=== PATIENT | female | born 1940 | race Caucasian/White ===

== ENCOUNTER 2019-08-14 07:21 | Day surgery (SDC) | payer MEDICARE ==
[~2019-08-14 07:21] MED LIST: ASPI81CH PO; ESTR2; IBUP100S; Lisinopril2.5 MG; METO25ER; RANI150EL; Vitamin D400 UNI1
== END 2019-08-14 23:24 | disposition home or self-care (01) ==
LOC: MOI MAM 07:21
DX: N64.89 Other specified disorders of breast (principal)
CPT/HCPCS: 19083; 77065; 88305; A4648; G0279

== ENCOUNTER → 2022-10-19 | Outpatient (CLI) | payer MEDICARE ==
[2022-10-19 11:38] LABS: BASOPHILS ABSOLUTE AUTO 0.08 K/mm3 (0.00-0.23); BASOPHILS PERCENT AUTO 1 % (0-2); EOSINOPHILS PERCENT AUTO 6 % (0-6); Hematocrit 35.1 % (33.0-51.0); IMMATURE GRAN ABSOLUTE AUTO 0.03 K/mm3 (0.00-0.10); IMMATURE GRAN PERCENT AUTO 0 % (0-1); LYMPHOCYTES ABSOLUTE AUTO 1.02 K/mm3 (0.84-5.20); LYMPHOCYTES PERCENT AUTO 10 % (21-46); MONOCYTES ABSOLUTE AUTO 1.22 K/mm3 (0.16-1.47); MONOCYTES PERCENT AUTO 12 % (4-13); Mean Corpuscular HGB 32.1 pg (26.0-34.0); Mean Corpuscular HGB Conc 34.2 g/dL (31.5-36.5); Mean Corpuscular Volume 94 fL (80-100); Mean Platelet Volume 9.8 fL (9.1-12.4); NEUTROPHILS ABSOLUTE AUTO 7.55 K/mm3 (1.96-9.15); NEUTROPHILS PERCENT AUTO 72 % (41-73); Platelet Count 272 K/mm3 (150-400); RDW Standard Deviation 41.6 fL (35.1-46.3); Red Blood Cell Count 3.74 M/mm3 (3.80-5.20)
[2022-10-19 11:50] LABS: Albumin, Blood 3.6 g/dL (3.4-5.0); Albumin/Globulin Ratio 0.8 (0.8-1.8); Bilirubin, Total 0.6 mg/dL (0.1-1.0); Bun/Creatinine Ratio 14.9 (12.0-20.0); Calcium, Blood 9.6 mg/dL (8.5-10.1); Creatinine, Blood 1.48 mg/dL (0.40-1.00); Globulin, Blood 4.4 g/dL (2.2-4.0); Potassium, Blood 4.1 mmol/L (3.5-5.5)
== END ==
LOC: LAB 11:34 → LAB SHORT 11:34
PROVIDERS: Physician Assistant
DX: R10.9 Unspecified abdominal pain (principal)
CPT/HCPCS: 80053; 83690; 85025

== ENCOUNTER 2023-04-08 08:47 | Day surgery (SDC) | payer MEDICARE ==
[~2023-04-08] VITALS: Ht 167.6 cm; Wt 86.6 kg
[2023-04-08] MEDS ORDERED: DOC250 (09:11)
[2023-04-08] MEDS ORDERED: CLARITIN5 MG/5 M2 (09:11)
[2023-04-08] MEDS ORDERED: FAMO10 (09:11)
[2023-04-08] MEDS ORDERED: OMEP20ER (09:11)
[2023-04-08] MEDS ORDERED: Lisinopril-Hct1 EAC4 (09:11)
[2023-04-08 11:30] VITALS: BP 114/59
== END 2023-04-08 11:52 | disposition home or self-care (01) ==
LOC: ORSCSDS 08:47
PROVIDERS: Internal Medicine Gastroenterology
PROC: 0DB78ZX Excision of Stomach, Pylorus, Via Natural or Artificial Opening Endoscopic, Diagnostic (ICD-10-PCS; principal; 2023-04-08 10:15)
PROC: 0DB98ZX Excision of Duodenum, Via Natural or Artificial Opening Endoscopic, Diagnostic (ICD-10-PCS; principal; 2023-04-08 10:15)
PROC: 0DBN8ZX Excision of Sigmoid Colon, Via Natural or Artificial Opening Endoscopic, Diagnostic (ICD-10-PCS; principal; 2023-04-08 10:15)
PROC: 0DBK8ZX Excision of Ascending Colon, Via Natural or Artificial Opening Endoscopic, Diagnostic (ICD-10-PCS; principal; 2023-04-08 10:15)
PROC: 0DBP8ZX Excision of Rectum, Via Natural or Artificial Opening Endoscopic, Diagnostic (ICD-10-PCS; principal; 2023-04-08 10:15)
PROC: 0DBL8ZX Excision of Transverse Colon, Via Natural or Artificial Opening Endoscopic, Diagnostic (ICD-10-PCS; principal; 2023-04-08 10:15)
PROC: 0DBH8ZX Excision of Cecum, Via Natural or Artificial Opening Endoscopic, Diagnostic (ICD-10-PCS; principal; 2023-04-08 10:15)
DX: K21.00 Gastro-esophageal reflux disease with esophagitis, without bleeding (principal); R10.31 Right lower quadrant pain; R93.3 Abnormal findings on diagnostic imaging of other parts of digestive tract; K44.9 Diaphragmatic hernia without obstruction or gangrene; K63.89 Other specified diseases of intestine; K57.30 Diverticulosis of large intestine without perforation or abscess without bleeding; K64.0 First degree hemorrhoids; K29.70 Gastritis, unspecified, without bleeding; K31.7 Polyp of stomach and duodenum; D12.0 Benign neoplasm of cecum; D12.2 Benign neoplasm of ascending colon; D12.3 Benign neoplasm of transverse colon; D12.5 Benign neoplasm of sigmoid colon; K63.5 Polyp of colon; K62.1 Rectal polyp; I12.9 Hypertensive chronic kidney disease with stage 1 through stage 4 chronic kidney disease, or unspecified chronic kidney disease; N18.32 Chronic kidney disease, stage 3b; F41.8 Other specified anxiety disorders; Z87.891 Personal history of nicotine dependence; Z79.899 Other long term (current) drug therapy
CPT/HCPCS: 88305; 88342; J2405; J2704; J7120

== ENCOUNTER 2023-05-05 08:04 | Inpatient (IN) | payer MEDICARE ==
[2023-05-05] VITALS (14 sets, daily range): BP systolic 119–162; BP diastolic 52–124
[~2023-05-05] VITALS: Ht 167.6 cm; Wt 86.7 kg
[~2023-05-05 08:04] MED LIST changes: +CLARITIN5 MG/5 M2; +DOC250 PO; +ERGO400 PO; -ESTR2; +ESTR2 PO; +FAMO10; +Lisinopril-Hct1 EAC4 PO; -METO25ER; +METO25ER PO; +MULVITA PO; +OMEP20ER PO; -Vitamin D400 UNI1
--- NOTE | 2023-05-05 09:25 | NUR ---
Ambulatory in Day Surgery History, Chart, Medications and Allergies reviewed before start of procedure.Lungs clear T/O to Auscultation. Patient confirms NPO status and agrees with scheduled surgery. Patient reports completing Chlorhexadine shower X2 prior to admission to hospital.Surgical site prepped with 2% Chlorhexidine cloth wipe.Pt reports 3/10 right abdominal pain and nausea.
--- NOTE | 2023-05-05 15:05 | NUR ---
PATIENT JUST ARRIVED FROM PACU TODAY AT 1500. POD 0 LAP RAMESH COLECTOMY PATIENT IS DROWSY BUT ANSWERS QUESTIONS APPROPRIATELY WHEN SPOKEN TO. HER ABD HAS 4 LAP SITES WITH STERI STRIPS. HER UMBILICAL LAP SITE IS LEAKING A LITTLE BIT OF RED OUTPUT BUT OTHERWISE THE REST OF THE STERI STRIPS ARE C/D/I. PATIENT IS TOLERATING A SMALL AMOUNT OF PO INTAKE. PATIENT WAS EDUCATED ON IGNITION SOURCES AND RISKS OF INJURY WITH IGNITION SOURCES. PATIENT VERBALIZED UNDERSTANDING OF EDUCATION AND HAD NO FURTHER QUESTIONS AT THIS TIME. SHE HAS A RIVAS WITH DARK YELLOW URINE OUTPUT. SHE DENIES NUMBNESS OR TINGLING. PATIENT IS LAYING IN BED WITH CALL LIGHT IN REACH.
[2023-05-06 00:57] VITALS: BP 148/61
[2023-05-06 04:47] VITALS: BP 144/71
[2023-05-06 05:23] LABS: BASOPHILS ABSOLUTE AUTO 0.01 K/mm3 (0.00-0.23); BASOPHILS PERCENT AUTO 0 % (0-2); EOSINOPHILS PERCENT AUTO 0 % (0-6); Hematocrit 35.4 % (33.0-51.0); Hemoglobin 12.1 g/dL (11.5-16.0); IMMATURE GRAN PERCENT AUTO 1 % (0-1); LYMPHOCYTES ABSOLUTE AUTO 0.76 K/mm3 (0.84-5.20); LYMPHOCYTES PERCENT AUTO 5 % (21-46); MONOCYTES ABSOLUTE AUTO 0.96 K/mm3 (0.16-1.47); MONOCYTES PERCENT AUTO 6 % (4-13); Mean Corpuscular HGB 31.3 pg (26.0-34.0); Mean Corpuscular HGB Conc 34.2 g/dL (31.5-36.5); Mean Corpuscular Volume 92 fL (80-100); Mean Platelet Volume 10.1 fL (9.1-12.4); NEUTROPHILS ABSOLUTE AUTO 14.18 K/mm3 (1.96-9.15); NEUTROPHILS PERCENT AUTO 89 % (41-73); Platelet Count 272 K/mm3 (150-400); RDW Coefficient Variation 11.9 % (11.7-14.2); RDW Standard Deviation 39.8 fL (35.1-46.3); Red Blood Cell Count 3.86 M/mm3 (3.80-5.20); White Blood Cell Count 16.01 K/mm3 (4.00-11.30)
[2023-05-06 06:10] LABS: Bun/Creatinine Ratio 15.6 (12.0-20.0); Calcium, Blood 8.9 mg/dL (8.5-10.1); Creatinine, Blood 1.86 mg/dL (0.40-1.00); Potassium, Blood 4.6 mmol/L (3.5-5.5)
[2023-05-06 07:54] VITALS: BP 136/58
--- NOTE | 2023-05-06 08:00 | NUR ---
SHIFT SUMMARY POD 1 RIGHT HEMICOLECTOMY, 4 LAP SITES W/ STERI STRIPS INTACT. UMBILICAL SITE VISIBLE W/ MINIMAL DRIED BLOOD AND INDER BRUISING. A&OX4, VSS, PT DENIES N/T, SOB, OR DIZZINESS. PT DOES REPORT 8/10 PAIN AT HS, MEDICATED W/ 0.5MG DILAUDID AND FOLLOWED BY 10MG KARRIE. PT SLEPT WELL T/O NIGHT W/ NO ACUTE CHANGES. EVELYN REMOVED THIS A.M. PT HAS NOT AMBULATED SINCE SURGERY BUT HAS DANGLED AT BEDSIDE. PT TOLERATING FOODS WELL. WILL REPORT OFF TO DAY SHIFT STAFF.
[2023-05-06 14:44] VITALS: BP 140/55
--- NOTE | 2023-05-06 18:39 | NUR ---
SHIFT SUMMARY PT AxOx4. PLEASANT AND COOPERATIVE WITH CARE. PT IS POST OP DAY 1 FROM RIGHT HEMICOLECTOMY. PT REPORTED GENERALIZED ABD PAIN THIS SHIFT. PT MEDICATED PER EMAR WITH REPORTED RELIEF. LAP SITES x4 APPEAR WNL WITH STERI STRIP CLOSURE. NO REDNESS, NEW BLEEDING OR SWELLING NOTED AT INCISION SITES. SURGEON IN FOR POST OP CHECK. PT VOIDING WITHOUT DIFFICULTY POST RIVAS REMOVAL. NO BM THIS SHIFT. PT TOLERATING CLEAR DIET WELL. PT UP IN ROOM AMBULATING SMOOTHLY WITH FWW AND SBA. FAMILY IN FOR VISITATION THIS SHIFT. PT IS CURRENTLY RESTING IN BED WITH CALL LIGHT IN REACH. PT DENIES ANY NEEDS AT THIS TIME.
[2023-05-06 19:36] VITALS: BP 135/63
[2023-05-07 04:31] VITALS: BP 140/66
[2023-05-07 04:48] LABS: BASOPHILS ABSOLUTE AUTO 0.06 K/mm3 (0.00-0.23); BASOPHILS PERCENT AUTO 1 % (0-2); EOSINOPHILS PERCENT AUTO 1 % (0-6); Hematocrit 32.2 % (33.0-51.0); IMMATURE GRAN ABSOLUTE AUTO 0.05 K/mm3 (0.00-0.10); IMMATURE GRAN PERCENT AUTO 0 % (0-1); LYMPHOCYTES ABSOLUTE AUTO 1.63 K/mm3 (0.84-5.20); LYMPHOCYTES PERCENT AUTO 13 % (21-46); MONOCYTES ABSOLUTE AUTO 1.42 K/mm3 (0.16-1.47); MONOCYTES PERCENT AUTO 11 % (4-13); Mean Corpuscular HGB 31.8 pg (26.0-34.0); Mean Corpuscular HGB Conc 34.2 g/dL (31.5-36.5); Mean Corpuscular Volume 93 fL (80-100); Mean Platelet Volume 10.1 fL (9.1-12.4); NEUTROPHILS ABSOLUTE AUTO 9.67 K/mm3 (1.96-9.15); NEUTROPHILS PERCENT AUTO 75 % (41-73); Platelet Count 253 K/mm3 (150-400); RDW Standard Deviation 40.7 fL (35.1-46.3); Red Blood Cell Count 3.46 M/mm3 (3.80-5.20); White Blood Cell Count 12.93 K/mm3 (4.00-11.30)
--- NOTE | 2023-05-07 05:28 | NUR ---
PT A/O WITH FLAT AFFECT, MINIMAL PAIN TO ABD, DRESSING CDI, ENC TO AMBULATE IN RM, DAUGHTER AT BEDSIDE. NEW IV STARTED LEFT AC. PT WAS THEN MEDIUCATED FOR MILD PAIN TO ABD, NOT CHANGE IN CONT, CONT MONITORING.
[2023-05-07 06:25] LABS: Bun/Creatinine Ratio 19.4 (12.0-20.0); Calcium, Blood 9.1 mg/dL (8.5-10.1); Creatinine, Blood 1.7 mg/dL (0.40-1.00)
[2023-05-07 07:32] VITALS: BP 154/61
[2023-05-07 15:10] VITALS: BP 150/61
--- NOTE | 2023-05-07 18:12 | NUR ---
SHIFT SUMMARY PT A&OX4 AND IN PLEASENT MOOD T/O SHIFT. DAUGHTER IN TO SEE PT T/O SHIFT. TOLERATING FULL LIQUID DIET WELL. VSS. PAIN MEDICATED PER EMAR. PT DENIES FLATUS/BM SINCE SURGERY. CALL LIGHT W/IN REACH. SHOWERED THIS SHIFT. LAP SITES ON ABD CDI, SCANT DRY BLOOD PRESENT. BOWEL TONES HYPOACTIVE.
[2023-05-07 19:55] VITALS: BP 129/55
--- NOTE | 2023-05-08 04:25 | NUR ---
SHIFT SUMMARY PATIENT HAD NO ACUTE CHANGES. AXOX 4 AND INDEPENDENT IN ROOM WITH FWW. REPORTED ABDOMEN PAIN X ONE AND NORCO ONE TAB GIVEN PER EMAR. PATIENT ABLE TO SLEEP. DENIES CHEST PAIN, SOB, AND N/V. VSS/AFEBRILE. PIV REMAINS INTACT. LAP SITES ON ABDOMEN C/D/I. PATIENT SITTING ON BENCH SEAT READING AT START OF SHIFT ON HER ELECTRONIC DEVICE. COOPERATIVE WITH CARE. CALL LIGHT IN REACH. BED IN LOWEST POSITION. WILL CONTINUE TO MONITOR UNTIL DAY SHIFT NURSE ASSUMES CARE.
[2023-05-08 05:13] VITALS: BP 137/52
[2023-05-08 05:18] LABS: BASOPHILS ABSOLUTE AUTO 0.08 K/mm3 (0.00-0.23); BASOPHILS PERCENT AUTO 1 % (0-2); EOSINOPHILS ABSOLUTE AUTO 0.42 K/mm3 (0.00-0.68); EOSINOPHILS PERCENT AUTO 5 % (0-6); Hematocrit 33.7 % (33.0-51.0); Hemoglobin 11.4 g/dL (11.5-16.0); IMMATURE GRAN ABSOLUTE AUTO 0.02 K/mm3 (0.00-0.10); IMMATURE GRAN PERCENT AUTO 0 % (0-1); LYMPHOCYTES ABSOLUTE AUTO 1.61 K/mm3 (0.84-5.20); LYMPHOCYTES PERCENT AUTO 17 % (21-46); MONOCYTES ABSOLUTE AUTO 1.05 K/mm3 (0.16-1.47); MONOCYTES PERCENT AUTO 11 % (4-13); Mean Corpuscular HGB 31.1 pg (26.0-34.0); Mean Corpuscular HGB Conc 33.8 g/dL (31.5-36.5); Mean Corpuscular Volume 92 fL (80-100); Mean Platelet Volume 10.2 fL (9.1-12.4); NEUTROPHILS ABSOLUTE AUTO 6.08 K/mm3 (1.96-9.15); NEUTROPHILS PERCENT AUTO 66 % (41-73); Platelet Count 264 K/mm3 (150-400); RDW Coefficient Variation 11.8 % (11.7-14.2); RDW Standard Deviation 40.1 fL (35.1-46.3); Red Blood Cell Count 3.66 M/mm3 (3.80-5.20); White Blood Cell Count 9.26 K/mm3 (4.00-11.30)
[2023-05-08 05:30] LABS: Calcium, Blood 9.5 mg/dL (8.5-10.1); Creatinine, Blood 1.25 mg/dL (0.40-1.00); Potassium, Blood 4.1 mmol/L (3.5-5.5)
[2023-05-08 08:00] VITALS: BP 140/61
--- NOTE | 2023-05-08 16:07 | NUR ---
SHIFT SUMMARY POD3 R LAP HEMICOLECTOMY, STERISTRIPS X4 DRY/INTACT, DENIES FLATUS/BT+, PRICE FULL LIQUID DIET, VOIDING, PAIN MANAGED, AMB INDEPENDENTLY IN ROOM/HALLWAY. WILL REPORT TO ONCOMING ERWIN KRAMER.
[2023-05-08 17:19] VITALS: BP 126/58
[2023-05-08 19:24] VITALS: BP 139/73
[2023-05-09 04:24] VITALS: BP 145/76
--- NOTE | 2023-05-09 04:33 | NUR ---
SHIFT SUMMARY PATIENT HAD NO ACUTE CHANGES. AXO X4 AND INDEPENDENT W/FWW IN ROOM AND HALLWAY. REPORTED HAVING LOOSE STOOLS. STERI STRIPS X 4 CLEAN/DRY/INTACT. ACTIVE BOWEL TONES. ABDOMINAL PAIN X ONE AND TYLENOL 325 MG GIVEN PER PATIENT REQUEST. VSS/AFEBRILE. DENIES CHEST PAIN, SOB, AND N/V. WATCHED TV FIRST PART OF SHIFT. COOPERATIVE WITH CARE. CALL LIGHT IN REACH. BED IN LOWEST POSITION. WILL CONTINUE TO MONITOR UNTIL DAY SHIFT NURSE ASSUMES CARE.
[2023-05-09 07:40] VITALS: BP 105/81
[2023-05-09 08:26] LABS: BASOPHILS ABSOLUTE AUTO 0.07 K/mm3 (0.00-0.23); BASOPHILS PERCENT AUTO 1 % (0-2); EOSINOPHILS ABSOLUTE AUTO 0.39 K/mm3 (0.00-0.68); EOSINOPHILS PERCENT AUTO 4 % (0-6); Hematocrit 32.4 % (33.0-51.0); Hemoglobin 11.2 g/dL (11.5-16.0); IMMATURE GRAN ABSOLUTE AUTO 0.02 K/mm3 (0.00-0.10); IMMATURE GRAN PERCENT AUTO 0 % (0-1); LYMPHOCYTES ABSOLUTE AUTO 1.18 K/mm3 (0.84-5.20); LYMPHOCYTES PERCENT AUTO 13 % (21-46); MONOCYTES ABSOLUTE AUTO 1.03 K/mm3 (0.16-1.47); MONOCYTES PERCENT AUTO 11 % (4-13); Mean Corpuscular HGB 31.7 pg (26.0-34.0); Mean Corpuscular HGB Conc 34.6 g/dL (31.5-36.5); Mean Corpuscular Volume 92 fL (80-100); Mean Platelet Volume 9.9 fL (9.1-12.4); NEUTROPHILS ABSOLUTE AUTO 6.47 K/mm3 (1.96-9.15); NEUTROPHILS PERCENT AUTO 71 % (41-73); Platelet Count 262 K/mm3 (150-400); RDW Coefficient Variation 11.8 % (11.7-14.2); RDW Standard Deviation 39.6 fL (35.1-46.3); Red Blood Cell Count 3.53 M/mm3 (3.80-5.20); White Blood Cell Count 9.16 K/mm3 (4.00-11.30)
[2023-05-09 08:32] VITALS: BP 133/85
[2023-05-09 08:47] LABS: Albumin, Blood 3.1 g/dL (3.4-5.0); Albumin/Globulin Ratio 0.8 (0.8-1.8); Bilirubin, Total 0.5 mg/dL (0.1-1.0); Bun/Creatinine Ratio 16.7 (12.0-20.0); Calcium, Blood 9.4 mg/dL (8.5-10.1); Creatinine, Blood 1.2 mg/dL (0.40-1.00); Globulin, Blood 3.7 g/dL (2.2-4.0); Magnesium, Blood 1.8 mg/dL (1.6-2.4); Phosphorus, Blood 2.2 mg/dL (2.5-4.9); Potassium, Blood 4.1 mmol/L (3.5-5.5); Total Protein, Blood 6.8 g/dL (6.4-8.2)
--- NOTE | 2023-05-09 09:30 | NUR ---
TACHYCARDIA DURING AM VS CHECKS PT WAS FOUND TO HAVE HR OF 160-170. PT DENIED SHORTNESS OF BREATH AND CHEST PAIN. PT DID REPORT FEELING THAT HER HR WAS ABNORMAL. DR. ANDERS NOTIFIED, EKG OBTAINED AND DR. RODRIGUEZ CONSULTED. TELE ORDERED, FLUID BOLUS ORDERED AND GIVEN, METOPROLOL GIVEN. PT'S HR REDUCED TO 80'S BY THE TIME TELE WAS PLACED. DR. RODRIGUEZ NOTIFIED. REPEAT EKG CONFIMED NSR. BP IMPROVED AND REMAINING AM MEDS GIVEN.
[2023-05-09] MEDS ORDERED: ACET325 PO (14:13)
[2023-05-09] MEDS ORDERED: IBUP800 PO (14:14)
[2023-05-09 15:22] VITALS: BP 136/69
--- NOTE | 2023-05-09 17:21 | NUR ---
DISCHARGE PT PROVIDED WITH WRITTEN AND VERBAL DISCHARGE INSTRUCTIONS AT TIME OF DISCHARGE; SHE AND HER DAUGHTER REPORTED UNDERSTANDING. PAIN MANAGED AT TIME OF DISCHARGE. VSS AT TIME OF DISCHARGE. PT EDUCATED TO F/U WITH HER PCP REGARDING EPISODE OF ELEVATED HR. SHE WAS ALSO EDUCATED TO INCREASE HER METOPROLOL ORDERED BY DR. RODRIGUEZ, PT REPORTED FEELING RELUCTANT TO INCREASE HER MEDICATION BASED ON ONE EPISODE OF INCREASED HR, EDUCATION WAS PROVIDED AND PT ENCOURAGED TO F/U WITH PCP CHRISTINE. PT EDUCATED TO MONITOR BP AND HR AND TAKE NOT OF ANY SYMPTOMS AND SITUATION SURROUNDING ANY INCREASE IN HR. PT ASSISTED OUT IN A W/C AT APPROXIMATELY 1550 BY HER DAUGHTER.
== END 2023-05-09 15:50 | disposition home or self-care (01) | DRG 331 ==
LOC: SURS 08:04 → MEDS 08:04 → PRE IP 09:15 → MEDS 14:53
PROVIDERS: Internal Medicine; ADMIT Surgery
PROC: 0DTF4ZZ Resection of Right Large Intestine, Percutaneous Endoscopic Approach (ICD-10-PCS; principal; 2023-05-05 09:15)
DX: K63.89 Other specified diseases of intestine (principal); N18.30 Chronic kidney disease, stage 3 unspecified; I48.0 Paroxysmal atrial fibrillation; K21.9 Gastro-esophageal reflux disease without esophagitis; M19.90 Unspecified osteoarthritis, unspecified site; E78.00 Pure hypercholesterolemia, unspecified; I12.9 Hypertensive chronic kidney disease with stage 1 through stage 4 chronic kidney disease, or unspecified chronic kidney disease; Z96.659 Presence of unspecified artificial knee joint; Z98.49 Cataract extraction status, unspecified eye; Z90.49 Acquired absence of other specified parts of digestive tract; Z87.39 Personal history of other diseases of the musculoskeletal system and connective tissue; Z98.890 Other specified postprocedural states; Z88.8 Allergy status to other drugs, medicaments and biological substances; Z79.82 Long term (current) use of aspirin; Z79.899 Other long term (current) drug therapy; Z90.710 Acquired absence of both cervix and uterus; Z87.891 Personal history of nicotine dependence
CPT/HCPCS: 36415; 80048; 80053; 83735; 84100; 85025; 88309; 93005; 93010; 94760; A9270; J0295; J1100; J1650; J1885; J2250; J2371; J2405; J2704; J2765; J3010; J7040; J7120

== ENCOUNTER 2024-06-20 09:16 | Day surgery (SDC) | payer MEDICARE ==
[~2024-06-20] VITALS: Ht 167.6 cm; Wt 83.9 kg
[~2024-06-20 09:16] MED LIST changes: +ACET325 PO; +IBUP800 PO; +Lactated Ringer's 1,000 ML IV ONE; +propofoL 50 ML IV ONE
[2024-06-20] MEDS ORDERED: Lactated Ringer's 1,000 ML IV ONE (10:45)
[2024-06-20 11:46] VITALS: BP 127/66
== END 2024-06-20 11:49 | disposition home or self-care (01) ==
LOC: ORSCSDS 09:16
PROVIDERS: Surgery
PROC: 0DJD8ZZ Inspection of Lower Intestinal Tract, Via Natural or Artificial Opening Endoscopic (ICD-10-PCS; principal; 2024-06-20 10:30)
DX: Z85.038 Personal history of other malignant neoplasm of large intestine (principal); Z90.49 Acquired absence of other specified parts of digestive tract; K21.9 Gastro-esophageal reflux disease without esophagitis; E78.00 Pure hypercholesterolemia, unspecified; I10 Essential (primary) hypertension; N28.9 Disorder of kidney and ureter, unspecified; Z79.82 Long term (current) use of aspirin; Z79.899 Other long term (current) drug therapy
CPT/HCPCS: J2704; J7120